=== PATIENT | male | born 2000 | race Caucasian/White ===

== ENCOUNTER → 2020-06-15 | Outpatient (CLI) | payer BC, OTHER ==
[2020-06-20 15:08] LABS: F002-IGE MILK 8.03 kU/L (Class IV); F003-IGE CODFISH 1.48 kU/L (Class III); F004-IGE WHEAT 4.21 kU/L (Class IV); F005-IGE RYE 2.64 kU/L (Class III); F006-IGE BARLEY 2.07 kU/L (Class III); F007-IGE OAT 4.75 kU/L (Class IV); F009-IGE RICE 2.37 kU/L (Class III); F012-IGE GREEN PEA 8.39 kU/L (Class IV); F014-IGE SOYBEAN 9.11 kU/L (Class IV); F015-IGE WHITE BEAN 1.26 kU/L (Class II); F020-IGE ALMOND 6.92 kU/L (Class IV); F025-IGE TOMATO 2.26 kU/L (Class III); F027-IGE BEEF 2.74 kU/L (Class III); F031-IGE CARROT 3.72 kU/L (Class III); F033-IGE ORANGE 1.68 kU/L (Class III); F035-IGE POTATO, WHITE 2.53 kU/L (Class III); F040-IGE TUNA 0.94 kU/L (Class II); F041-IGE SALMON 0.62 kU/L (Class II); F047-IGE GARLIC 7.06 kU/L (Class IV); F083-IGE CHICKEN 1.51 kU/L (Class III); F089-IGE MUSTARD 3.31 kU/L (Class III); F093-IGE CHOCOLATE/CACAO 0.73 kU/L (Class II); F215-IGE LETTUCE 3.53 kU/L (Class III); F263-IGE GREEN PEPPERCORN 0.42 kU/L (Class I); F338-IGE SCALLOP 5.83 kU/L (Class IV)
== END ==
LOC: LAB 18:05
PROVIDERS: Nurse Practitioner Family
DX: L29.9 Pruritus, unspecified (principal); R21 Rash and other nonspecific skin eruption; Z91.018 Allergy to other foods

== ENCOUNTER 2021-07-03 07:23 | Emergency (ER) | payer MEDICAID ==
[2021-07-03 08:41] LABS: HEMOGLOBIN 12.8 gm/dl (14.0-17.5); RED BLOOD COUNT 4.6 M/UL (4.20-5.50); WHITE BLOOD COUNT 13.3 K/UL (4.5-11.0)
[2021-07-03 09:10] LABS: BUN/CREATININE RATIO 18 (0-10)
[2021-07-03] MEDS ORDERED: LOMOTIL 2.5-0.1 EACH PO (09:45)
[2021-07-03] MEDS ORDERED: MEDROL DOSEPAK 24 MG PO (09:54)
[2021-07-03] MEDS ORDERED: PREDNISONE 20 M20 MG GT (09:54)
[2021-07-03] MEDS ORDERED: ZOFRAN ODT 4 MG4 MG GT (09:54)
== END 2021-07-03 10:09 | disposition home or self-care (01) ==
LOC: ER1 07:23
PROVIDERS: Physician Assistant
DX: J45.901 Unspecified asthma with (acute) exacerbation (principal); L30.9 Dermatitis, unspecified; R10.9 Unspecified abdominal pain; R11.2 Nausea with vomiting, unspecified; R19.7 Diarrhea, unspecified
CPT/HCPCS: 71045; 80053; 83690; 83735; 85025; 85652; 86140; 94664; 99284